=== PATIENT | female | born 1945 | race Caucasian/White ===

== ENCOUNTER 2017-04-03 17:36 | Emergency (ER) | payer MEDICARE ==
[~2017-04-03 17:36] MED LIST: AMOXICILLIN500 MG PO; BENADRYL25 MG PO; CEFTIN500 MG PO; CELEXA20 M1 PO; CERTAGEN1 EACH PO; COLACE100 MG PO; FLORASTOR250 MG PO; LACTINEX1 EACH PO; LAXATIVE5 MG PO; LEVAQUIN 500MG500 MG PO; LEXAPRO 10MG TA10 MG PO; LOVAZA1 GM PO; MAALOX MAXIMUM355 ML PO; MILK OF MA400 MG/5 M PO; MORPHINE PUMP; MUCINEX 600MG600 MG PO; MYRBETRIQ50 MG PO; NEURONTIN600 MG PO; OS-CAL500 MG PO; OXYCONTIN20 MG PO; PAIN RELIEF325 MG PO; PEPCID20 MG PO; PRAVACHOL20 MG PO; PREDNISONE 10MG10 MG PO; PREMARIN V45 GM/TUBE VG; PREMARIN0.625 MG PO; VENTOLIN HFA IN18 GM INH; VITAMIN D1000 UNI1 PO; XOPENEX (11.25 MG/3 NEB; ZITHROMAX500 MG PO; ZOFRAN ODT4 MG PO; ZOVIRAX400 MG PO
[2017-04-03 19:15] LABS: BASOPHIL 0.1 % (0-2); EOSINOPHIL 3.4 % (0-7); HCT 33.6 % (37.0-47.0); LYMPHOCYTE 17.2 % (15-48); MCH 21.6 pg (25.0-31.0); MCHC 29.8 g/dL (32.0-36.0); MCV 72.6 fL (78.0-100.0); MONOCYTE 5.8 % (0-12); MPV 10.2 fL (6.0-9.5); NEUTROPHIL 73.5 % (41-80); PLT 282 K/uL (150-400); RBC 4.63 M/uL (4.20-5.40); RDW 20.1 % (11.5-14.0); WBC 6.9 K/uL (4.0-10.5)
[2017-04-03 19:31] LABS: ALBUMIN 3.4 g/dL (3.4-4.8); BILIRUBIN - TOTAL 0.2 mg/dL (0.1-1.0); CREATININE 0.7 mg/dL (0.5-1.0); GLOBULIN (CALCULATION) 3.1 g/dL (2.2-4.2); POTASSIUM 4.2 mmol/L (3.5-5.1); TOTAL PROTEIN 6.5 g/dL (6.4-8.3)
[2017-04-03 19:54] LABS: LACTIC ACID 1.3 mmol/L (0.5-2.2)
[2017-04-03 19:57] LABS: BILIRUBIN 1+ mg/dL (NEGATIVE); BLOOD 1+ Ery/uL (NEGATIVE); CLARITY CLEAR (CLEAR); COLOR YELLOW (YELLOW); GLUCOSE (U) NORMAL (NORMAL); KETONE (U) NEGATIVE (NEGATIVE); LEUKOCYTES NEGATIVE Leu/uL (NEGATIVE); NITRITE NEGATIVE (NEGATIVE); PROTEIN NEGATIVE (NEGATIVE); SPECIFIC GRAVITY <=1.005 (1.001-1.030); UROBILINOGEN 0.2 mg/dL (0.2-1.0); pH 5.5 (5.0-9.0)
[2017-04-03 20:03] LABS: BACTERIA TRACE; SQUAMOUS EPITHELIAL CELLS RARE; URINARY RBC RARE
== END 2017-04-03 20:34 | disposition home or self-care (01) ==
LOC: FER 17:36
PROVIDERS: Internal Medicine
DX: L03.115 Cellulitis of right lower limb (principal); I89.0 Lymphedema, not elsewhere classified; E78.5 Hyperlipidemia, unspecified; E78.00 Pure hypercholesterolemia, unspecified; Z88.5 Allergy status to narcotic agent; Z79.899 Other long term (current) drug therapy; Z85.40 Personal history of malignant neoplasm of unspecified female genital organ
CPT/HCPCS: 36415; 80053; 81001; 83605; 85025; 85379; 86140; 87040; 93971

== ENCOUNTER 2020-11-23 12:31 | Emergency (ER) | payer MEDICARE ==
[~2020-11-23 12:31] MED LIST changes: +ASPIRIN81 MG PO; +CATAPRES0.1 MG PO; +CIPRO500 MG PO; +FEOSOL325 MG PO; +HEPARIN 3010 UNIT/1 IV; +KEFLEX250 MG PO; +LOPRESSOR25 MG PO; +MICON-GUARD 2% TOP; +NORCO 7.5-3251 EACH PO; +NORMAL SALINE F10 ML IV; +VITAMIN B-650 MG PO; -VITAMIN D1000 UNI1 PO; +Vitamin D PO; +ZESTRIL2.5 MG PO
[2020-11-23 13:14] LABS: BASOPHIL 0.3 % (0-2); EOSINOPHIL 1.9 % (0-7); LYMPHOCYTE 12.7 % (15-48); MCH 24.5 pg (25.0-31.0); MCHC 29.7 g/dL (32.0-36.0); MCV 82.4 fL (78.0-100.0); MONOCYTE 10.1 % (0-12); NEUTROPHIL 74.3 % (41-80); NRBC 0; PLT 143 K/uL (150-400); RBC 4.49 M/uL (4.20-5.40); RDW 18.5 % (11.5-14.0); WBC 7.3 K/uL (4.0-10.5)
[2020-11-23 13:41] LABS: ALBUMIN 2.8 g/dL (3.4-5.0); BILIRUBIN - TOTAL 0.5 mg/dL (0.2-1.0); BUN/CREAT RATIO (CALC) 12.4 RATIO; CREATININE 1.05 mg/dL (0.51-0.95); GLOBULIN (CALCULATION) 4.1 g/dL; POTASSIUM 3.7 mmol/L (3.5-5.1); TOTAL PROTEIN 6.9 g/dL (6.4-8.2)
[2020-11-23 16:17] LABS: BILIRUBIN NEGATIVE (NEGATIVE); BLOOD TRACE-INTACT Ery/uL (NEGATIVE); CLARITY CLEAR (CLEAR); COLOR YELLOW (YELLOW); GLUCOSE (U) NORMAL (NORMAL); LEUKOCYTES NEGATIVE Leu/uL (NEGATIVE); NITRITE NEGATIVE (NEGATIVE); PROTEIN NEGATIVE (NEGATIVE); UROBILINOGEN 0.2 mg/dL (0.2-1.0); pH 6.5 (5.0-9.0)
[2020-11-23 16:23] LABS: SQUAMOUS EPITHELIAL CELLS RARE; URINARY RBC RARE
[2020-11-23 17:39] LABS: CORONAVIRUS 2019 SARS-COV-2 NEGATIVE (NEGATIVE); INFLUENZA A NAA NEGATIVE (NEGATIVE)
[2021-02-22] MEDS ORDERED: VENTOLIN (2.5 MG/3 M INH (13:31)
[2021-02-22] MEDS ORDERED: AUGMENTIN 875-1 EACH PO (13:31)
[2021-02-22] MEDS ORDERED: KEFLEX250 MG PO (13:32)
[2021-02-22] MEDS ORDERED: REMERON15 MG PO (13:32)
[2021-02-22] MEDS ORDERED: ONDANSETRON HCL8 MG PO (13:33)
[2021-02-22] MEDS ORDERED: DILAUDID PUMP (13:34)
[2021-02-22] MEDS ORDERED: ASCORBIC ACID500 MG PO (13:35)
[2021-02-22] MEDS ORDERED: PROBIOTIC1 EAC1 PO (13:35)
[2021-04-08] MEDS ORDERED: PERCOCET 10-321 EACH PO (11:55)
[2021-04-08] MEDS ORDERED: ONDANSETRON ODT8 MG PO (11:55)
== END 2020-11-23 18:46 | disposition home or self-care (01) ==
LOC: FER 12:31
PROVIDERS: Emergency Medicine; Nurse Practitioner Family
DX: E86.0 Dehydration (principal); I25.10 Atherosclerotic heart disease of native coronary artery without angina pectoris; I25.2 Old myocardial infarction; F41.9 Anxiety disorder, unspecified; Z89.611 Acquired absence of right leg above knee; Z79.82 Long term (current) use of aspirin; Z79.899 Other long term (current) drug therapy; Z88.5 Allergy status to narcotic agent; Z20.822 Contact with and (suspected) exposure to COVID-19
CPT/HCPCS: 36415; 71045; 80053; 81001; 82150; 83690; 85025; J7030; U0002

== ENCOUNTER 2020-11-28 12:58 | Emergency (ER) | payer MEDICARE ==
[2020-11-28 15:05] LABS: BASOPHIL 0.3 % (0-2); EOSINOPHIL 0.9 % (0-7); HCT 37.8 % (37.0-47.0); MCH 24.7 pg (25.0-31.0); MCHC 29.1 g/dL (32.0-36.0); MCV 84.9 fL (78.0-100.0); MONOCYTE 4.1 % (0-12); MPV 11.6 fL (6.0-9.5); NRBC 0; PLT 168 K/uL (150-400); RBC 4.45 M/uL (4.20-5.40); RDW 18.8 % (11.5-14.0); WBC 15.7 K/uL (4.0-10.5)
[2020-11-28 15:28] LABS: ALBUMIN 2.7 g/dL (3.4-5.0); BILIRUBIN - TOTAL 0.4 mg/dL (0.2-1.0); BUN/CREAT RATIO (CALC) 8.5 RATIO; C-REACTIVE PROTEIN 14.1 mg/dL (<=0.90); CREATININE 4.46 mg/dL (0.51-0.95); GLOBULIN (CALCULATION) 4.1 g/dL; MAGNESIUM 1.5 mg/dL (1.8-2.4); POTASSIUM 4.4 mmol/L (3.5-5.1); TOTAL PROTEIN 6.8 g/dL (6.4-8.2)
[2020-11-28 15:46] LABS: LACTIC ACID 1.6 mmol/L (0.4-1.9)
[2020-11-28 19:34] LABS: BILIRUBIN NEGATIVE (NEGATIVE); BLOOD 3+ Ery/uL (NEGATIVE); CLARITY CLOUDY (CLEAR); COLOR YELLOW (YELLOW); GLUCOSE (U) NORMAL (NORMAL); LEUKOCYTES TRACE Leu/uL (NEGATIVE); NITRITE NEGATIVE (NEGATIVE); PROTEIN 2+ mg/dL (NEGATIVE); SPECIFIC GRAVITY >=1.030 (1.001-1.030); UROBILINOGEN 0.2 mg/dL (0.2-1.0)
[2020-11-28 19:38] LABS: BACTERIA 4+; SQUAMOUS EPITHELIAL CELLS >50; URINARY WBC 20-50
[2020-11-28 19:39] LABS: AMORPHOUS URATES CRYSTALS MODERATE; MUCOUS MODERATE
[2021-02-22] MEDS ORDERED: AUGMENTIN 875-1 EACH PO (13:31)
[2021-02-22] MEDS ORDERED: VENTOLIN (2.5 MG/3 M INH (13:31)
[2021-02-22] MEDS ORDERED: KEFLEX250 MG PO (13:32)
[2021-02-22] MEDS ORDERED: REMERON15 MG PO (13:32)
[2021-02-22] MEDS ORDERED: ONDANSETRON HCL8 MG PO (13:33)
[2021-02-22] MEDS ORDERED: DILAUDID PUMP (13:34)
[2021-02-22] MEDS ORDERED: ASCORBIC ACID500 MG PO (13:35)
[2021-02-22] MEDS ORDERED: PROBIOTIC1 EAC1 PO (13:35)
[2021-04-08] MEDS ORDERED: ONDANSETRON ODT8 MG PO (11:55)
[2021-04-08] MEDS ORDERED: PERCOCET 10-321 EACH PO (11:55)
== END 2020-11-28 20:25 | disposition other institution (70) ==
LOC: FER 12:58
PROVIDERS: Emergency Medicine
DX: A41.9 Sepsis, unspecified organism (principal); R65.21 Severe sepsis with septic shock; N19 Unspecified kidney failure; R34 Anuria and oliguria; Z88.5 Allergy status to narcotic agent
CPT/HCPCS: 36415; 71250; 80053; 81001; 82550; 82728; 83605; 83615; 83735; 84145; 85025; 86140; 87040; 87088; 96365; 96375; J2543; J7030

== ENCOUNTER → 2021-02-24 | Day surgery (SDC) | payer MEDICARE ==
[~2021-02-24] MED LIST changes: +ABILIFY2 MG PO; +ABILIFY5 MG PO; +ACETAMINOPHEN325 MG PO; +ALBUTEROL1.25 MG/3 NEB; +ASCORBIC ACID500 MG PO; +AUGMENTIN 875-1 EACH PO; +BUPIVACAINE; +CETIRIZINE HCL10 MG PO; +DILAUDID PUMP; +DUONEB 2.5-0.5M1 AMP NEB; +H-CHLOR 12473 ML EXT; +HYDROMORPHONE; +INDERAL LA160 MG PO; +LOVENOX40 MG/0.4 SC; +NEURONTIN300 MG PO; +NORCO 5-325 TA1 EACH PO; +ONDANSETRON HCL8 MG PO; +ONDANSETRON ODT8 MG PO; +PANTOPRAZOLE SO40 MG PO; +PERCOCET 10-321 EACH PO; +PREDNISONE20 MG PO; +PROBIOTIC1 EAC1 PO; +REMERON15 MG PO; +VENTOLIN (2.5 MG/3 M INH; +VENTOLIN HFA18 GM INH
[2021-02-24 09:35] LABS: HCT 38.7 % (37.0-47.0); HGB 11.3 g/dl (12.5-16.0); MCH 24.9 pg (25.0-31.0); MCHC 29.2 g/dL (32.0-36.0); MCV 85.4 fL (78.0-100.0); MPV 10.3 fL (6.0-9.5); RBC 4.53 M/uL (4.20-5.40); RDW 15.7 % (11.5-14.0); WBC 7.8 K/uL (4.0-10.5)
[2021-02-24 10:12] LABS: ALBUMIN 2.6 g/dL (3.4-5.0); BILIRUBIN - TOTAL 0.3 mg/dL (0.2-1.0); BUN/CREAT RATIO (CALC) 13.9 RATIO; CREATININE 1.01 mg/dL (0.51-0.95); GLOBULIN (CALCULATION) 4.2 g/dL; TOTAL PROTEIN 6.8 g/dL (6.4-8.2)
== END | disposition home or self-care (01) ==
LOC: FAS 08:28
PROVIDERS: Surgery
DX: R19.7 Diarrhea, unspecified (principal); I25.10 Atherosclerotic heart disease of native coronary artery without angina pectoris; I51.89 Other ill-defined heart diseases; M19.90 Unspecified osteoarthritis, unspecified site; K80.20 Calculus of gallbladder without cholecystitis without obstruction; J44.9 Chronic obstructive pulmonary disease, unspecified; E78.5 Hyperlipidemia, unspecified; E78.00 Pure hypercholesterolemia, unspecified; E78.1 Pure hyperglyceridemia; F32.9 Major depressive disorder, single episode, unspecified; Z20.822 Contact with and (suspected) exposure to COVID-19; Z79.899 Other long term (current) drug therapy; Z96.649 Presence of unspecified artificial hip joint; Z90.710 Acquired absence of both cervix and uterus; Z98.890 Other specified postprocedural states; Z88.5 Allergy status to narcotic agent; Z88.1 Allergy status to other antibiotic agents; Z88.8 Allergy status to other drugs, medicaments and biological substances
CPT/HCPCS: 36415; 80053; 88305; J2250; J2704; J7120

== ENCOUNTER 2021-04-11 10:51 | Inpatient (IN) | payer MEDICARE ==
[~2021-04-11] VITALS: Ht 163 cm; Wt 134.3 kg
[~2021-04-11 10:51] MED LIST changes: -ABILIFY2 MG PO; -ABILIFY5 MG PO; -ACETAMINOPHEN325 MG PO; -ALBUTEROL1.25 MG/3 NEB; -BUPIVACAINE; -CETIRIZINE HCL10 MG PO; -DUONEB 2.5-0.5M1 AMP NEB; -H-CHLOR 12473 ML EXT; -HYDROMORPHONE; -INDERAL LA160 MG PO; -LOVENOX40 MG/0.4 SC; -NEURONTIN300 MG PO; -NORCO 5-325 TA1 EACH PO; -PANTOPRAZOLE SO40 MG PO; -PREDNISONE20 MG PO; -VENTOLIN HFA18 GM INH
[2021-04-11 11:51] LABS: BASOPHIL 0.2 % (0-2); EOSINOPHIL 0.8 % (0-7); HCT 34.8 % (37.0-47.0); HGB 10.8 g/dl (12.5-16.0); LYMPHOCYTE 5.5 % (15-48); MCH 24.7 pg (25.0-31.0); MCV 79.5 fL (78.0-100.0); MONOCYTE 3.6 % (0-12); MPV 10.3 fL (6.0-9.5); NEUTROPHIL 89.2 % (41-80); NRBC 0; PLT 188 K/uL (150-400); RBC 4.38 M/uL (4.20-5.40); RDW 17.2 % (11.5-14.0); WBC 21.5 K/uL (4.0-10.5)
[2021-04-11 12:08] LABS: ALBUMIN 2.5 g/dL (3.4-5.0); BILIRUBIN - TOTAL 1.2 mg/dL (0.2-1.0); BUN/CREAT RATIO (CALC) 18.1 RATIO; CREATININE 1.27 mg/dL (0.51-0.95); GLOBULIN (CALCULATION) 3.5 g/dL
[2021-04-11 12:12] LABS: LACTIC ACID 0.8 mmol/L (0.4-1.9)
[2021-04-11 12:45] LABS: CORONAVIRUS 2019 SARS-COV-2 NEGATIVE (NEGATIVE); INFLUENZA A NAA NEGATIVE (NEGATIVE)
[2021-04-11 13:09] LABS: BILIRUBIN NEGATIVE (NEGATIVE); BLOOD TRACE-INTACT Ery/uL (NEGATIVE); CLARITY CLEAR (CLEAR); COLOR YELLOW (YELLOW); GLUCOSE (U) NORMAL (NORMAL); LEUKOCYTES NEGATIVE Leu/uL (NEGATIVE); NITRITE NEGATIVE (NEGATIVE); PROTEIN TRACE (LOW) mg/dL (NEGATIVE); SPECIFIC GRAVITY 1.025 (1.001-1.030); UROBILINOGEN 0.2 mg/dL (0.2-1.0)
[2021-04-11 13:16] LABS: BACTERIA 1+; URINARY RBC RARE; URINARY WBC RARE
[2021-04-11] MEDS ORDERED: HYDROMORPHONE (16:11)
[2021-04-11] MEDS ORDERED: BUPIVACAINE (16:11)
[2021-04-11] MEDS ORDERED: OS-CAL500 MG PO (16:12)
[2021-04-11] MEDS ORDERED: INDERAL LA160 MG PO (16:12)
[2021-04-11] MEDS ORDERED: CETIRIZINE HCL10 MG PO (16:13)
[2021-04-12 06:25] LABS: BASOPHIL 0.2 % (0-2); EOSINOPHIL 0.3 % (0-7); HCT 35.1 % (37.0-47.0); HGB 10.7 g/dl (12.5-16.0); LYMPHOCYTE 5.6 % (15-48); MCH 24.5 pg (25.0-31.0); MCHC 30.5 g/dL (32.0-36.0); MCV 80.3 fL (78.0-100.0); MONOCYTE 4.5 % (0-12); MPV 11.1 fL (6.0-9.5); NRBC 0; PLT 186 K/uL (150-400); RBC 4.37 M/uL (4.20-5.40); RDW 17.3 % (11.5-14.0); WBC 17.8 K/uL (4.0-10.5)
[2021-04-12 06:27] LABS: NEUTROPHIL 88.7 % (41-80)
[2021-04-12 06:59] LABS: ALBUMIN 1.9 g/dL (3.4-5.0); BILIRUBIN - TOTAL 1.8 mg/dL (0.2-1.0); BUN/CREAT RATIO (CALC) 18.8 RATIO; CREATININE 1.17 mg/dL (0.51-0.95); GLOBULIN (CALCULATION) 4.3 g/dL; POTASSIUM 4.7 mmol/L (3.5-5.1); TOTAL PROTEIN 6.2 g/dL (6.4-8.2)
[2021-04-13 04:17] LABS: BASOPHIL 0.1 % (0-2); HCT 30.8 % (37.0-47.0); HGB 9.3 g/dl (12.5-16.0); LYMPHOCYTE 7.3 % (15-48); MCH 24.3 pg (25.0-31.0); MCHC 30.2 g/dL (32.0-36.0); MCV 80.6 fL (78.0-100.0); MONOCYTE 5.6 % (0-12); MPV 10.8 fL (6.0-9.5); NEUTROPHIL 84.9 % (41-80); NRBC 0; PLT 193 K/uL (150-400); RBC 3.82 M/uL (4.20-5.40); RDW 17.5 % (11.5-14.0); WBC 14.9 K/uL (4.0-10.5)
[2021-04-13 04:35] LABS: ALBUMIN 1.5 g/dL (3.4-5.0); BUN/CREAT RATIO (CALC) 17.6 RATIO; CREATININE 1.08 mg/dL (0.51-0.95); GLOBULIN (CALCULATION) 4.3 g/dL; POTASSIUM 4.1 mmol/L (3.5-5.1); TOTAL PROTEIN 5.8 g/dL (6.4-8.2)
--- NOTE | 2021-04-13 16:08 | NUR ---
04/13/21 Ms. See has 3 sons. Her son, Bret See lives in the home. She has caregivers when Bret is at work. Ms. See has a motorized wc, walker, hospital bed, over bed table, s. chair, 3in1, Espinoza lift, ramp and emergency alert system. Ms. See was going to [facility] for lymphedema therapy prior to her gallbladder surgery. - Ms. See would like to be admitted to a SNF at discharge. Her preferences are [facility]. - [facility] has a bed and is reviewing.
--- NOTE | 2021-04-13 21:10 | NUR ---
0 Patient request placement of purwix. Placed as requested.
[2021-04-14 04:50] LABS: BUN/CREAT RATIO (CALC) 15.8 RATIO; CREATININE 0.95 mg/dL (0.51-0.95); POTASSIUM 3.7 mmol/L (3.5-5.1)
[2021-04-14 05:02] LABS: BASOPHIL 0.2 % (0-2); EOSINOPHIL 4.1 % (0-7); HCT 29.6 % (37.0-47.0); HGB 8.7 g/dl (12.5-16.0); LYMPHOCYTE 11.9 % (15-48); MCH 24.2 pg (25.0-31.0); MCHC 29.4 g/dL (32.0-36.0); MCV 82.2 fL (78.0-100.0); MONOCYTE 8.1 % (0-12); MPV 10.7 fL (6.0-9.5); NEUTROPHIL 74.8 % (41-80); NRBC 0; PLT 172 K/uL (150-400); RDW 17.4 % (11.5-14.0); WBC 8.8 K/uL (4.0-10.5)
--- NOTE | 2021-04-14 13:51 | NUR ---
DRESSING CHANGED TO RIGHT GROIN. WET TO DRY PACKING.
--- NOTE | 2021-04-14 14:51 | NUR ---
04/14/21 Therapy notes were faxed to [facility]. A verbal update was provided to Suzy Tracy.
[2021-04-15 06:32] LABS: BASOPHIL 0.4 % (0-2); EOSINOPHIL 4.6 % (0-7); HCT 31.5 % (37.0-47.0); HGB 9.3 g/dl (12.5-16.0); LYMPHOCYTE 15.2 % (15-48); MCH 24.3 pg (25.0-31.0); MCHC 29.5 g/dL (32.0-36.0); MCV 82.5 fL (78.0-100.0); MONOCYTE 10.5 % (0-12); MPV 9.8 fL (6.0-9.5); NEUTROPHIL 67.7 % (41-80); NRBC 0; PLT 180 K/uL (150-400); RBC 3.82 M/uL (4.20-5.40); RDW 17.2 % (11.5-14.0); WBC 7.6 K/uL (4.0-10.5)
[2021-04-15 06:46] LABS: ALBUMIN 1.8 g/dL (3.4-5.0); BILIRUBIN - TOTAL 0.6 mg/dL (0.2-1.0); BUN/CREAT RATIO (CALC) 14.9 RATIO; CREATININE 0.87 mg/dL (0.51-0.95); GLOBULIN (CALCULATION) 4.3 g/dL; POTASSIUM 3.7 mmol/L (3.5-5.1); TOTAL PROTEIN 6.1 g/dL (6.4-8.2)
[2021-04-16 04:41] LABS: BASOPHIL 0.4 % (0-2); EOSINOPHIL 0 % (0-7); HCT 29.7 % (37.0-47.0); HGB 8.9 g/dl (12.5-16.0); LYMPHOCYTE 14.2 % (15-48); MCH 24.3 pg (25.0-31.0); MCV 81.1 fL (78.0-100.0); MONOCYTE 5.9 % (0-12); MPV 10.5 fL (6.0-9.5); NEUTROPHIL 75.8 % (41-80); NRBC 0; PLT 202 K/uL (150-400); RBC 3.66 M/uL (4.20-5.40); RDW 17.3 % (11.5-14.0); WBC 6.8 K/uL (4.0-10.5)
[2021-04-16 05:00] LABS: ALBUMIN 1.8 g/dL (3.4-5.0); BILIRUBIN - TOTAL 0.6 mg/dL (0.2-1.0); BUN/CREAT RATIO (CALC) 18.7 RATIO; CREATININE 0.75 mg/dL (0.51-0.95); GLOBULIN (CALCULATION) 4.3 g/dL; TOTAL PROTEIN 6.1 g/dL (6.4-8.2)
--- NOTE | 2021-04-16 14:22 | NUR ---
04/16/21 Mayi may be admitted to [facility] with the CM tube if necessary, per [facility]. Report given to MS AWILDA Woods and Dr. Sanders.
[2021-04-17] MEDS ORDERED: H-CHLOR 12473 ML EXT (11:18)
[2021-04-17] MEDS ORDERED: NORCO 5-325 TA1 EACH PO (11:18)
[2021-04-17] MEDS ORDERED: PANTOPRAZOLE SO40 MG PO (11:18)
[2021-04-17] MEDS ORDERED: DUONEB 2.5-0.5M1 AMP NEB (11:18)
[2021-04-17] MEDS ORDERED: ACETAMINOPHEN325 MG PO (11:18)
[2021-04-17] MEDS ORDERED: ABILIFY5 MG PO (11:18)
[2021-04-17] MEDS ORDERED: LOVENOX40 MG/0.4 SC (11:18)
[2021-04-17] MEDS ORDERED: ONDANSETRON HCL8 MG PO (11:18)
[2021-04-17] MEDS ORDERED: NEURONTIN300 MG PO (11:18)
[2021-04-17] MEDS ORDERED: ABILIFY2 MG PO (13:14)
== END 2021-04-17 14:40 | DRG 356 ==
LOC: FER 10:51 → FTCU 14:18 → FMS 04-16 10:00
PROVIDERS: Emergency Medicine; Internal Medicine; Surgery; ADMIT Allergy & Immunology Allergy
PROC: 0W9G4ZZ Drainage of Peritoneal Cavity, Percutaneous Endoscopic Approach (ICD-10-PCS; principal; 2021-04-12 11:45)
PROC: 0F798DZ Dilation of Common Bile Duct with Intraluminal Device, Via Natural or Artificial Opening Endoscopic (ICD-10-PCS; 2021-04-15)
PROC: BF101ZZ Fluoroscopy of Bile Ducts using Low Osmolar Contrast (ICD-10-PCS; 2021-04-15)
DX: K91.89 Other postprocedural complications and disorders of digestive system (principal); R65.11 Systemic inflammatory response syndrome (SIRS) of non-infectious origin with acute organ dysfunction; G93.41 Metabolic encephalopathy; N17.9 Acute kidney failure, unspecified; Z68.42 Body mass index [BMI] 45.0-49.9, adult; M86.60 Other chronic osteomyelitis, unspecified site; I50.32 Chronic diastolic (congestive) heart failure; J98.11 Atelectasis; M86.651 Other chronic osteomyelitis, right thigh; Z20.822 Contact with and (suspected) exposure to COVID-19; E66.01 Morbid (severe) obesity due to excess calories; R06.2 Wheezing; F32.9 Major depressive disorder, single episode, unspecified; I25.10 Atherosclerotic heart disease of native coronary artery without angina pectoris; Z96.641 Presence of right artificial hip joint; K74.60 Unspecified cirrhosis of liver; M51.36 Other intervertebral disc degeneration, lumbar region; E78.5 Hyperlipidemia, unspecified; M19.90 Unspecified osteoarthritis, unspecified site; Z90.710 Acquired absence of both cervix and uterus; Z88.8 Allergy status to other drugs, medicaments and biological substances; Z88.5 Allergy status to narcotic agent; Z88.1 Allergy status to other antibiotic agents; Z89.512 Acquired absence of left leg below knee; I25.2 Old myocardial infarction; Z90.49 Acquired absence of other specified parts of digestive tract; Z89.611 Acquired absence of right leg above knee
CPT/HCPCS: 36415; 71045; 71250; 74328; 78226; 80048; 80053; 81001; 82150; 83605; 84145; 84484; 85025; 87040; 87070; 87088; 87205; 93005; 94640; 94667; 94668; 94762; 97163; 97167; 97530; 97530-GP; 97535; A9537; C1758; J1100; J1170; J1610; J1650; J1885; J2250; J2310; J2370; J2405; J2543; J2704; J2710; J3010; J7120; Q9967; U0002

== ENCOUNTER 2021-04-21 11:22 | Emergency (ER) | payer MEDICARE ==
[~2021-04-21 11:22] MED LIST changes: +ABILIFY2 MG PO; +ABILIFY5 MG PO; +ACETAMINOPHEN325 MG PO; +BUPIVACAINE; +CETIRIZINE HCL10 MG PO; +DUONEB 2.5-0.5M1 AMP NEB; +H-CHLOR 12473 ML EXT; +HYDROMORPHONE; +INDERAL LA160 MG PO; +LOVENOX40 MG/0.4 SC; +NEURONTIN300 MG PO; +NORCO 5-325 TA1 EACH PO; +PANTOPRAZOLE SO40 MG PO
[2021-04-21 12:11] LABS: INR 1.04 (0.9-1.2); PROTHROMBIN TIME 12.9 SECONDS (11.4-13.6); PTT 29.9 SECONDS (22.2-34.7)
[2021-04-21 12:23] LABS: BASOPHIL 0.4 % (0-2); EOSINOPHIL 3.7 % (0-7); HCT 35.5 % (37.0-47.0); HGB 9.9 g/dl (12.5-16.0); LYMPHOCYTE 11.8 % (15-48); MCHC 27.9 g/dL (32.0-36.0); MONOCYTE 4.8 % (0-12); MPV 11.6 fL (6.0-9.5); NEUTROPHIL 76.8 % (41-80); NRBC 0; PLT 269 K/uL (150-400); RBC 4.12 M/uL (4.20-5.40); RDW 17.6 % (11.5-14.0); WBC 8.4 K/uL (4.0-10.5)
[2021-04-21 12:27] LABS: LACTIC ACID 1.1 mmol/L (0.4-1.9)
[2021-04-21 12:28] LABS: PRO-BNP 821 pg/mL (<125)
[2021-04-21 12:35] LABS: ALBUMIN 2.3 g/dL (3.4-5.0); BILIRUBIN - TOTAL 0.3 mg/dL (0.2-1.0); CREATININE 0.73 mg/dL (0.51-0.95); GLOBULIN (CALCULATION) 4.2 g/dL; MAGNESIUM 1.6 mg/dL (1.8-2.4); POTASSIUM 4.4 mmol/L (3.5-5.1); TOTAL PROTEIN 6.5 g/dL (6.4-8.2)
[2021-04-21 12:41] LABS: MCV 86.2 fL (78.0-100.0)
[2021-04-21 13:06] LABS: D-DIMER > 20.00 ug/mLFEU (0.00-0.41)
[2021-04-21 13:24] LABS: BILIRUBIN NEGATIVE (NEGATIVE); BLOOD 2+ Ery/uL (NEGATIVE); CLARITY CLOUDY (CLEAR); COLOR YELLOW (YELLOW); GLUCOSE (U) NORMAL (NORMAL); LEUKOCYTES 3+ Leu/uL (NEGATIVE); NITRITE NEGATIVE (NEGATIVE); PROTEIN NEGATIVE (NEGATIVE); UROBILINOGEN 0.2 mg/dL (0.2-1.0)
[2021-04-21 13:30] LABS: URINARY WBC TNTC
[2021-04-21 13:31] LABS: BACTERIA TRACE; SQUAMOUS EPITHELIAL CELLS RARE; YEAST PRESENT
[2021-04-21] MEDS ORDERED: PREDNISONE20 MG PO ×2 (16:40→17:20)
[2021-04-21] MEDS ORDERED: ALBUTEROL1.25 MG/3 NEB (16:40)
[2021-04-21] MEDS ORDERED: VENTOLIN HFA18 GM INH (17:20)
== END 2021-04-21 17:50 | disposition home or self-care (01) ==
LOC: FER 11:22
PROVIDERS: Emergency Medicine
DX: J40 Bronchitis, not specified as acute or chronic (principal); Z98.890 Other specified postprocedural states; Z88.5 Allergy status to narcotic agent; Z88.8 Allergy status to other drugs, medicaments and biological substances
CPT/HCPCS: 36415; 71045; 71275; 80053; 81001; 83540; 83605; 83690; 83735; 83880; 84145; 84484; 85025; 85379; 85610; 85730; 93005; Q9967

== ENCOUNTER → 2021-06-08 | Day surgery (SDC) | payer MEDICARE ==
[~2021-06-08] VITALS: Ht 162.6 cm; Wt 124.8 kg
[~2021-06-08] MED LIST changes: +ALBUTEROL1.25 MG/3 NEB; +PREDNISONE20 MG PO; +VENTOLIN HFA18 GM INH
[2021-06-08 07:40] LABS: HCT 42.8 % (37.0-47.0); HGB 12.4 g/dl (12.5-16.0); MCH 24.5 pg (25.0-31.0); MCV 84.4 fL (78.0-100.0); MPV 9.8 fL (6.0-9.5); RBC 5.07 M/uL (4.20-5.40); RDW 20.4 % (11.5-14.0); WBC 9.3 K/uL (4.0-10.5)
[2021-06-08 08:01] LABS: ALBUMIN 3.3 g/dL (3.4-5.0); BILIRUBIN - TOTAL 0.3 mg/dL (0.2-1.0); BUN/CREAT RATIO (CALC) 33.3 RATIO; CREATININE 0.75 mg/dL (0.51-0.95); GLOBULIN (CALCULATION) 3.3 g/dL; POTASSIUM 3.7 mmol/L (3.5-5.1); TOTAL PROTEIN 6.6 g/dL (6.4-8.2)
== END | disposition home or self-care (01) ==
LOC: FAS 06:53
PROVIDERS: Surgery
DX: T85.520A Displacement of bile duct prosthesis, initial encounter (principal); K91.89 Other postprocedural complications and disorders of digestive system; F41.9 Anxiety disorder, unspecified; F32.9 Major depressive disorder, single episode, unspecified; I25.10 Atherosclerotic heart disease of native coronary artery without angina pectoris; M54.5 Low back pain; G89.29 Other chronic pain; J44.9 Chronic obstructive pulmonary disease, unspecified; I10 Essential (primary) hypertension; E78.1 Pure hyperglyceridemia; Z88.5 Allergy status to narcotic agent; Z96.641 Presence of right artificial hip joint; Z89.619 Acquired absence of unspecified leg above knee; I25.2 Old myocardial infarction
CPT/HCPCS: 36415; 74018; 74328; 80053; 93005; J1610; J2704; J7120; Q9967